=== PATIENT | male | born 1935 | race Caucasian/White ===

== ENCOUNTER 2016-04-27 20:52 | Emergency (ER) | payer BC, MEDICARE ==
--- NOTE | 2016-04-27 21:08 | Emergency Department Record ---
History of Present Illness - General Chief Complaint: Arrythmia/Palpitations Stated Complaint: IRREGULAR HEARTBEAT Time Seen by Provider: 04/27/16 21:05 Source: Patient Mode of Arrival: Wheelchair Limitations: No limitations - History of Present Illness Initial Comments: 81 yo male presents to ED with a CC of palpitations for the past several days, denies chest pain symptoms, difficulty in breathing, nausea, or vomiting symptoms. Patient reports that he has had these symptoms for several years, but reports that his family member was concerned and brought him to the ED for evaluation. MD Complaint: Irregular heart beat Onset/Timin -: Days(s) Context: Other Arrythmia History: Other Associated Symptoms: Denies other symptoms - Related Data Home Medications Medication Instructions Recorded Confirmed Last Taken Metoprolol Tartrate [Metoprolol 50 mg PO DAILY 04/27/16 04/27/16 Unknown Tartrate] Allergies Allergy/AdvReac Type Severity Reaction Status Date / Time Unable to Assess Allergy Unverified 04/27/16 21:11 Travel Screening - Travel/Exposure Within Last 30 Days Have you traveled within the last 30 days?: No - Travel/Exposure Within Last Year Have you traveled outside the [place] in the last year?: No - Additonal Travel Details Have you been exposed to anyone with a communicable illness?: No - Travel Symptoms Symptom Screening: None Review of Systems Constitutional: Denies: Chills, Fever, Malaise, Night sweats Eyes: Denies: Eye discharge, Eye pain ENT: Denies: Congestion, Ear pain, Epistaxis Respiratory: Denies: Cough, Dyspnea Cardiovascular: Reports: Palpitations. Denies: Chest pain, Dyspnea on exertion , Paroxysmal nocturnal dyspnea Endocrine: Denies: Fatigue, Heat or cold intolerance Gastrointestinal: Denies: Abdominal pain, Nausea, Vomiting Genitourinary: Denies: Incontinence, Retention Musculoskeletal: Denies: Arthralgia, Back pain, Gout, Joint swelling Skin: Denies: Bruising, Change in color Neurological: Denies: Abnormal gait, Confusion, Headache, Seizure Psychiatric: Denies: Anxiety Hematological/Lymphatic: Denies: Anemia, Blood Clots Past Medical History - SOCIAL HISTORY Smoking Status: Former smoker Alcohol Use: None Drug Use: None - RESPIRATORY Hx Respiratory Disorders: No - CARDIOVASCULAR Hx Cardio Disorders: Yes Hx Hypertension: Yes - NEURO Hx Neuro Disorders: No - GI Hx GI Disorders: No - Hx Genitourinary Disorders: No - ENDOCRINE Hx Endocrine Disorders: No - MUSCULOSKELETAL Hx Musculoskeletal Disorders: No - PSYCH Hx Psych Problems: No - HEMATOLOGY/ONCOLOGY Hx Hematology/Oncology Disorders: No Family Medical History Any Significant Family History?: No Physical Exam - General General Appearance: Alert, Oriented x3, Cooperative, No acute distress Limitations: No limitations - Head Head exam: Atraumatic, Normocephalic, Other (post-operateive chagnes to the left face on examination) Head exam detail: negative: Abrasion, Contusion, Dave's sign, General tenderness, Hematoma, Laceration - Eye Eye exam: Normal appearance. negative: Conjunctival injection, Periorbital swelling, Periorbital tenderness, Scleral icterus - ENT Ear exam: negative: Auricular hematoma, Auricular trauma Nasal Exam: negative: Active bleeding, Discharge, Dried blood, Foreign body Mouth exam: negative: Drooling, Laceration, Muffled voice, Tongue elevation - Neck Neck exam: Normal inspection. negative: Meningismus, Tenderness - Respiratory Respiratory exam: Normal lung sounds bilaterally. negative: Rales, Respiratory distress, Rhonchi, Stridor - Cardiovascular Cardiovascular Exam: Regular rate, Normal rhythm, Normal heart sounds - GI/Abdominal GI/Abdominal exam: Soft. negative: Rebound, Rigid, Tenderness - Rectal Rectal exam: Deferred - exam: Deferred - Extremities Extremities exam: Normal inspection. negative: Calf tenderness, Pedal edema, Tenderness - Back Back exam: Denies: CVA tenderness (R), CVA tenderness (L) - Neurological Neurological exam: Alert, Normal gait, Oriented X3 - Psychiatric Psychiatric exam: Normal affect, Normal mood - Skin Skin exam: Normal color. negative: Abrasion Type of lesion: negative: abrasion Course Vital Signs 04/27/16 20:54 Temperature 97.7 F Pulse Rate 55 L Respiratory 20 Rate Blood Pressure 157/84 Pulse Ox 96 - Reevaluation(s) Reevaluation #1: 04/27/16 21:05 EKG: NSR with PVCs Normal intervals, LAD No acute ST-T wave changes Reevaluation #2: 04/27/16 21:54 Labs reviewed and are grossly unremarkable for an acute process. Patient and his family were updated on all results, patient remains asymptomatic from his frequent PVCs. Patient was given a referral to Dr. Ashford for cardiology follow-up in 1-2 weeks. Medical Decision Making - Lab Data Result diagrams: 04/27/16 21:25 04/27/16 21:16 Disposition Disposition: Discharge Clinical Impression: Ventricular Premature Beats Disposition: Home, Self-Care Condition: (2) Stable Instructions: Premature Atrial Contractions (ED) Additional Instructions: Return to ED if your symptoms worsen or if you have any concerns Follow-up with Dr. Ashford in 3-5 days as directed. Referrals: ANCA ASHFORD M.D. [MEDICAL DOCTOR] - [facility] [Provider Group] Forms: Patient Portal Access Time of Disposition: 21:56
[2016-04-27 21:29] LABS: BASO % 0.9 % (0-6); EOS % 8.3 % (0-6); GRAN % 45.4 % (47-80); HEMATOCRIT 42.7 % (42.0-52.0); HEMOGLOBIN 14.2 gm/dl (14.0-18.0); LYMPH % 32.6 % (16-45); MEAN CELL VOLUME 95.3 fl (81-97); MEAN CORPUSCULAR HEMOGLOBIN 31.7 pg (27-33); MEAN CORPUSCULAR HGB CONC 33.3 g/dl (32-36); MEAN PLATELET VOLUME 10.5 fl (7.4-10.4); MONO % 12.8 % (0-9); PLATELET COUNT 251 K/uL (130-400); RED BLOOD COUNT 4.48 M/uL (4.40-5.70); RED CELL DISTRIBUTION WIDTH 13.3 % (11.5-14.5); WHITE BLOOD COUNT W/O DIFF 9.2 K/uL (4.2-12.2)
[2016-04-27 21:44] LABS: ALB/GLOB RATIO 1.4 (1.1-1.8); ALBUMIN 4.4 gm/dL (3.5-5.0); ALKALINE PHOSPHATASE 93 U/L (38-126); ALT/SGPT 35 U/L (21-72); ANION GAP 15.3 (7-16); AST/SGOT 27 U/L (17-59); BILIRUBIN,TOTAL 0.77 mg/dL (0.2-1.3); BLOOD UREA NITROGEN 15 mg/dL (9-20); CARBON DIOXIDE 23.7 mmol/L (22-30); CREATININE 0.7 mg/dL (0.66-1.25); EST GLOMERULAR FILTRATION RATE > 60 ml/min; GLUCOSE,RANDOM 95 mg/dL (70-110); TOTAL PROTEIN 7.5 gm/dL (6.3-8.2)
== END 2016-04-27 22:05 | disposition home or self-care (01) ==
LOC: ER 20:52
DX: I49.3 Ventricular premature depolarization (principal); I10 Essential (primary) hypertension; Z87.891 Personal history of nicotine dependence
CPT/HCPCS: 80053; 83735; 85025; 93005; 93010; 99284

== ENCOUNTER 2016-05-08 07:33 | Observation (INO) | payer MEDICARE ==
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
[2016-05-08 08:06] LABS: BASO % 0.7 % (0-6); EOS % 6.2 % (0-6); GRAN % 61.8 % (47-80); HEMATOCRIT 42.2 % (42.0-52.0); HEMOGLOBIN 14.3 gm/dl (14.0-18.0); LYMPH % 22.2 % (16-45); MEAN CELL VOLUME 94.8 fl (81-97); MEAN CORPUSCULAR HEMOGLOBIN 32.1 pg (27-33); MEAN CORPUSCULAR HGB CONC 33.9 g/dl (32-36); MEAN PLATELET VOLUME 10.2 fl (7.4-10.4); MONO % 9.1 % (0-9); PLATELET COUNT 281 K/uL (130-400); RED BLOOD COUNT 4.45 M/uL (4.40-5.70); RED CELL DISTRIBUTION WIDTH 13.2 % (11.5-14.5); WHITE BLOOD COUNT W/O DIFF 7.6 K/uL (4.2-12.2)
[2016-05-08 08:18] LABS: ALB/GLOB RATIO 1.3 (1.1-1.8); ALBUMIN 4.2 gm/dL (3.5-5.0); ALKALINE PHOSPHATASE 96 U/L (38-126); ALT/SGPT 27 U/L (21-72); ANION GAP 13.4 (7-16); AST/SGOT 23 U/L (17-59); BILIRUBIN,TOTAL 0.77 mg/dL (0.2-1.3); BLOOD UREA NITROGEN 12 mg/dL (9-20); CARBON DIOXIDE 24.6 mmol/L (22-30); CREATININE 0.8 mg/dL (0.66-1.25); EST GLOMERULAR FILTRATION RATE > 60 ml/min; GLUCOSE,RANDOM 124 mg/dL (70-110); TOTAL PROTEIN 7.4 gm/dL (6.3-8.2)
[2016-05-08] MEDS ORDERED: MECLIZINE 25 MG TABLET PO ONE (08:25)
[2016-05-08 08:26] LABS: INR 1.01; PARTIAL THROMBOPLASTIN TIME 29.6 SECONDS (24.5-39.1); PROTHROMBIN TIME (PATIENT) 11.4 SECONDS (9.5-12.1)
[2016-05-08 08:33] LABS: TROPONIN I < 0.012 ng/mL (0.00-0.034)
[2016-05-08] MEDS ORDERED: DIPHENHYDRAMINE HCL IV 50 MG/ML VIAL IVP ONE (08:43)
[2016-05-08 09:12] LABS: URINE APPEARANCE CLEAR; URINE BILIRUBIN NEGATIVE (NEGATIVE); URINE BLOOD SMALL (NEGATIVE); URINE COLOR YELLOW; URINE GLUCOSE (UA) NEGATIVE (NEGATIVE); URINE KETONE NEGATIVE (NEGATIVE); URINE LEUKOCYTE ESTERASE NEGATIVE (NEGATIVE); URINE NITRITE NEGATIVE (NEGATIVE); URINE PROTEIN NEGATIVE (NEGATIVE); URINE UROBILINOGEN 0.2 E.U./dL (0.20 - 1.00)
[2016-05-08 09:15] LABS: URINE SQUAMOUS EPITHELIAL CELL 0 - 2 /hpf; URINE WBC 0 - 2 (0-2/hpf)
[2016-05-08] MEDS ORDERED: MAGNESIUM HYDROXIDE/AL HYDROX 10.0001 ML, LIDOCAINE VISC 2% 200 MG, PHENOBARB/HYOSCY/AT... PO ONE ×3 (09:15)
[2016-05-08] MEDS ORDERED: 0.9 % SODIUM CHLORIDE 1000ML 1,000 ML IV PRN (10:25)
[2016-05-08] MEDS: METOPROLOL TART 50 MG TABLET PO SCH (10:51)
[2016-05-08] MEDS ORDERED: FLU VAC QS 2016-17 (INPT, 3YR+) 60MCG/0.5ML IM ONE (11:21)
[2016-05-08] MEDS: ACETAMINOPHEN 325 MG TAB PO PRN (21:33)
[2016-05-09] MEDS: ACETAMINOPHEN 325 MG TAB PO PRN (04:57)
[2016-05-09] MEDS: MECLIZINE 25 MG TABLET PO PRN ×2 (04:58→13:08)
[2016-05-09] MEDS: METOPROLOL TART 50 MG TABLET PO SCH ×2 (08:06→09:54)
--- NOTE | 2016-05-09 13:15 | Discharge Note ---
Discharge Note - Date Date of Discharge Note: 05/09/16 Disposition: Home, Self-Care Condition: (2) Stable Instructions: Meclizine (By mouth), Vertigo (DC) Additional Instructions: Follow up with Dr Ramos this week if antivert doesn't help may need physical therapy or ENT to do the head turning maneuvers (epply) which may help Antivert 25mg three times a day for dizziness Continue Metoprolol 50 mg by mouth once a day. Activity and diet as tolerated. Return to the ED if getting worse. Prescriptions: Meclizine HCl [Antivert] 25 mg PO Q8H PRN #30 tablet PRN Reason: Dizziness Referrals: MARY RAMOS [Primary Care Provider] - Forms: Patient Portal Access Activity at Discharge: Increase Activity as Tolerated
--- NOTE | 2016-05-10 07:55 | CT SCAN REPORT ---
EXAM: CT SCAN OF THE HEAD HISTORY: PATIENT HAS DIZZINESS. TECHNIQUE: Serial axial CT scan of the head was performed at 2.5 mm intervals from the base of the skull to the apex without the use of intravenous contrast. No comparison CT's are available. FINDINGS: Generalized moderate parenchymal volume loss is noted. There is no mass or mass effect. The frias and white differentiation appear within normal limits. Basal ganglia calcification is noted on the right. There is no CT evidence of intra or extraaxial fluid collection to suggest bleeding. Bone windows demonstrate extensive mucosal thickening within the right maxillary sinus with findings suggestive of postoperative changes. Similar postoperative changes are identified within the left maxillary sinus and left orbit. There is a radiopaque density identified within the medial, left extraconal space adjacent to the medial canthus. This finding is likely postoperative. Clinical correlation is recommended. Postoperative changes of the left orbit are identified. Bone windows demonstrate no CT evidence of a fracture or dislocation of the skull. IMPRESSION: 1. EXTENSIVE POSTOPERATIVE CHANGES OF THE PARANASAL SINUSES AND LEFT ORBIT DISCUSSED ABOVE. 2. GENERALIZED PARENCHYMAL VOLUME LOSS IS NOTED WITHOUT CT EVIDENCE OF AN ACUTE INTRACRANIAL PROCESS. IF THERE IS FURTHER CLINICAL CONCERN THEN A BRAIN MRI CAN BE OBTAINED FOR FURTHER EVALUATION. JOB NUMBER: [id number] MTDD
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
--- NOTE | 2016-05-10 13:51 | Discharge Summary ---
DISCHARGE DIAGNOSES: 1. Benign positional vertigo. 2. Status post history of arrhythmia and on Lopressor 25 mg once a day. 3. Possible viral upper respiratory infection. ATTENDING PHYSICIAN: Tony Syed D.O. REASON FOR HOSPITALIZATION: Spinning sensation which started at 4:00 a.m. on the day of admission. It was much worse when he would look up or rotate his head right or left. HISTORY OF THE PRESENT ILLNESS: It fatigued as he went through the day, and he was doing much better when I saw him in the hospital yesterday at about 2:15 p.m. He was kept for further evaluation and observation. His symptoms got much worse again in the middle of the night at about 5:00 a.m. He was given an Antivert, but it did not seem to help much. However, he is doing better than he was yesterday, according to the patient at my evaluation at 1:15 p.m. He is walking to the bathroom without assistance. His granddaughter or daughter was in the room with him, and I explained the situation with benign positional vertigo which can be worse especially after sleeping. It comes and goes. It can vary from just a few days to six weeks. It is sometimes necessary to have physical therapy to go through exercises to try to help the vertigo. SIGNIFICANT FINDINGS FROM EXAMINATION: LABORATORY DATA: White blood cell count was 7,600, hemoglobin was 14.3. Potassium was 3.8. BUN was 12 and creatinine was 0.8. Glucose was 124. Urinalysis was negative showing 3 to 6 red blood cells. DIAGNOSTIC DATA: CT of the head was negative. The EKG showed normal sinus rhythm and no acute ST T-wave changes. Cardiac enzymes times two were negative ; troponins. THERAPY PROVIDED: The patient was given intravenous fluids and Antivert and was observed. HOSPITAL COURSE: The patient gradually improved but is having intermittent recurrences. After sleeping a while, he will have more vertigo when he first sits up. CONDITION AT DISCHARGE: Stable and improved. DISCHARGE INSTRUCTIONS: Follow up with Dr. Dawit Sharma in one to five days. He may need an ENT referral, or Dr. Sharma can order physical therapy to try to go through the exercises to help stop the vertigo with the head turning exercises. I am not sure if [facility] does those exercises. I know in [place] they are performed through the physical therapy department. Antivert 25 mg t.i.d. Continue Lopressor 25 mg once a day for his arrhythmias and increase his fluids. Tony Syed D.O. Date Time JOB NUMBER: [id number] cc: Thomas Dominguez
== END 2016-05-09 15:20 | disposition home or self-care (01) ==
LOC: ER 07:33 → MEDSURG 09:36
PROVIDERS: ADMIT Emergency Medicine; ATTEND Emergency Medicine
DX: H81.10 Benign paroxysmal vertigo, unspecified ear (principal); I10 Essential (primary) hypertension; I49.3 Ventricular premature depolarization
CPT/HCPCS: 93041; 99285 ×2; 94760; 96374; 83735; 85025; 85730; 85610; 84484 ×2; 80053; 81001; 70450; 93005 ×2; 93010; G0378 ×2; J3490; 99217; 99220; J1200

== ENCOUNTER 2017-10-16 21:19 | Emergency (ER) | payer MEDICARE ==
[2017-10-16 22:08] LABS: URINE APPEARANCE CLEAR; URINE BILIRUBIN NEGATIVE (NEGATIVE); URINE BLOOD MODERATE (NEGATIVE); URINE COLOR YELLOW; URINE GLUCOSE (UA) NEGATIVE (NEGATIVE); URINE KETONE NEGATIVE (NEGATIVE); URINE LEUKOCYTE ESTERASE NEGATIVE (NEGATIVE); URINE NITRITE NEGATIVE (NEGATIVE); URINE PROTEIN NEGATIVE (NEGATIVE); URINE UROBILINOGEN 0.2 E.U./dL (0.20 - 1.00)
[2017-10-16 22:14] LABS: URINE BACTERIA NONE SEEN; URINE EPITHELIAL CELLS 0 - 2 (FEW); URINE WBC 0 - 2 (0-2/hpf)
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
== END 2017-10-16 23:05 | disposition home or self-care (01) ==
LOC: ER 21:19
DX: R31.9 Hematuria, unspecified (principal); Z87.891 Personal history of nicotine dependence; I10 Essential (primary) hypertension
CPT/HCPCS: 81001; 99282

== ENCOUNTER 2017-10-21 04:16 | Emergency (ER) | payer MEDICARE ==
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
[2017-10-21 04:45] LABS: URINE APPEARANCE CLEAR; URINE BILIRUBIN NEGATIVE (NEGATIVE); URINE BLOOD LARGE (NEGATIVE); URINE COLOR YELLOW; URINE GLUCOSE (UA) NEGATIVE (NEGATIVE); URINE KETONE NEGATIVE (NEGATIVE); URINE LEUKOCYTE ESTERASE NEGATIVE (NEGATIVE); URINE NITRITE NEGATIVE (NEGATIVE); URINE PROTEIN NEGATIVE (NEGATIVE); URINE UROBILINOGEN 0.2 E.U./dL (0.20 - 1.00)
[2017-10-21 04:47] LABS: URINE EPITHELIAL CELLS NONE SEEN (FEW); URINE RBC >50 (NONE SEEN); URINE WBC NONE SEEN (0-2/hpf)
== END 2017-10-21 05:11 | disposition home or self-care (01) ==
LOC: ER 04:16
DX: R31.0 Gross hematuria (principal); I10 Essential (primary) hypertension; Z87.891 Personal history of nicotine dependence
CPT/HCPCS: 81001; 99282